=== PATIENT | female | born 1945 | race African-American/Black ===

== ENCOUNTER 2017-05-24 08:29 | Emergency (ER) | payer OTHER ==
[~2017-05-24] VITALS: Ht 152.4 cm; Wt 97.5 kg
[~2017-05-24 08:29] MED LIST: AMLO5TAB22 PO; ASPI81 PO; AZIT250T3 PO; FISH1000 PO; FURO1TAB93 PO; LEVO.125 PO; LOVA1TAB47 PO; POTA20IN2 PO; PRIN10TA PO; TOPR50TA PO; VITA500C PO
[2017-05-24 08:32] VITALS: BP 138/64; PULSE 71; RESP 16; TEMP 98.5; O2SAT 98
[2017-05-24] MEDS ORDERED: MEDR4PAK PO (08:53)
[2017-05-24] MEDS ORDERED: BENA25TA6 PO (08:53)
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
== END 2017-05-24 10:30 | disposition home or self-care (01) ==
LOC: NEPC 08:29
DX: R21 Rash and other nonspecific skin eruption (principal); I50.9 Heart failure, unspecified; I11.0 Hypertensive heart disease with heart failure; E11.9 Type 2 diabetes mellitus without complications; E78.00 Pure hypercholesterolemia, unspecified; Z95.810 Presence of automatic (implantable) cardiac defibrillator; Z79.82 Long term (current) use of aspirin
CPT/HCPCS: 99284

== ENCOUNTER 2017-06-05 12:35 | Emergency (ER) | payer OTHER, MEDICAID ==
[~2017-06-05] VITALS: Ht 154.9 cm; Wt 92.0 kg
[~2017-06-05 12:35] MED LIST changes: -AZIT250T3 PO; +BENA25TA6 PO; +MEDR4PAK PO
[2017-06-05 12:39] VITALS: BP 155/74; PULSE 74; RESP 16; TEMP 98.4; O2SAT 98
[2017-06-05] MEDS ORDERED: LEVO.125 PO (12:52)
[2017-06-05] MEDS ORDERED: FURO1TAB60 PO (12:52)
[2017-06-05] MEDS ORDERED: ASCO1CHW8 (12:52)
[2017-06-05] MEDS ORDERED: ASPI81CH CHEW (12:52)
[2017-06-05] MEDS ORDERED: AMLO5TAB2 PO (12:52)
[2017-06-05] MEDS ORDERED: LOVA20TA PO (12:54)
[2017-06-05] MEDS ORDERED: POTA-163 PO (12:54)
[2017-06-05] MEDS ORDERED: LISI-515 PO (12:54)
[2017-06-05] MEDS ORDERED: TOPR50TA PO (12:54)
[2017-06-05] MEDS ORDERED: FISH1000 (12:54)
[2017-06-05] MEDS ORDERED: TRIAM.1%T TOPICAL (13:10)
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
== END 2017-06-05 13:18 | disposition home or self-care (01) ==
LOC: NEPD 12:35
DX: L25.9 Unspecified contact dermatitis, unspecified cause (principal); R11.2 Nausea with vomiting, unspecified; R19.7 Diarrhea, unspecified; E78.00 Pure hypercholesterolemia, unspecified; I10 Essential (primary) hypertension; E11.9 Type 2 diabetes mellitus without complications; I50.9 Heart failure, unspecified; Z79.82 Long term (current) use of aspirin; Z79.899 Other long term (current) drug therapy
CPT/HCPCS: 99283

== ENCOUNTER 2017-08-12 18:48 | Emergency (ER) | payer OTHER, MEDICAID ==
[~2017-08-12 18:48] MED LIST changes: +AMLO5TAB2 PO; -AMLO5TAB22 PO; +ASCO1CHW8; -ASPI81 PO; +ASPI81CH CHEW; +FISH1000; -FISH1000 PO; +FURO1TAB60 PO; -FURO1TAB93 PO; +LISI-515 PO; -LOVA1TAB47 PO; +LOVA20TA PO; +POTA-163 PO; -POTA20IN2 PO; -PRIN10TA PO; +TRIAM.1%T TOPICAL; -VITA500C PO
[2017-08-12 18:51] VITALS: BP 174/84; PULSE 74; RESP 19; TEMP 98.9; O2SAT 100
[2017-08-12 21:58] VITALS: BP 139/65; PULSE 66; RESP 16; O2SAT 99
--- NOTE | 2017-08-12 22:13 | PD ---
HPI Chief Complaint: Fall Time Seen by Provider: 21:47 Travel History International Travel<30 days: No Contact w/Intl Traveler<30days: No Traveled to known affect area: No History of Present Illness HPI Patient is a 71 yo female with PMH of CHF, pacemaker, Defibrillator, HTN, Hyperlipidemia presenting to the ER for a swollen left knee. The patient states she was painting earlier in the day and she tripped on the rug. It caused her to hit her knee and has been swollen since. The patient denies syncope and states she did not presyncopal symptoms such as nausea, aura, dizziness or loss of vision/strength before falling. She does not state anything that makes the pain better or worse. She has not taken anything to help with the pain. She denies fever, chest pain, SOB, headache, visual changes, and any new focal/ neurological deficits. She has been able to walk on her knee. Social: Negative for alcohol and illicit drugs. Smoke many years ago and denies current tobacco use Surgical: Hysterectomy, appendectomy, splenectomy, right wrist, pacemaker, Defibrillator PMH: CHF, HTN, Hyperlipidemia PFSH Past Medical History Hx Anticoagulant Therapy: Yes (ASA) Arthritis: No Asthma: No Autoimmune Disease: No Blood Disorders: No Anxiety: No Depression: No Heart Rhythm Problems: Yes Cancer: No Cardiovascular Problems: Yes (PACEMAKER/DEFIB/HTN) High Cholesterol: Yes Chemotherapy: No Chest Pain: Yes Congestive Heart Failure: Yes COPD: No Cerebrovascular Accident: No Diabetes: Yes (DIET CONTROLLED) Patient Takes Glucophage: No Diminished Hearing: No Endocrine: No GERD: No Glaucoma: No Genitourinary: No Headaches: No Hepatitis: No Hiatal Hernia: No Hypertension: Yes Immune Disorder: No Kidney Stones: No Musculoskeletal: No Neurologic: No Psychiatric: No Reproductive: No Respiratory: No Migraines: No Myocardial Infarction: No Radiation Therapy: No Renal Failure: No Seizures: No Sickle Cell Disease: No Sleep Apnea: No Thyroid Disease: Yes Ulcer: No ?: Not Menopausal: Yes : 8 Para: 4 Miscarriage: 2 Past Surgical History Abdominal Surgery: Yes AICD: Yes Appendectomy: Yes Arteriovenous Shunt: No Body Medical Devices: PACER/ICD Cardiac Surgery: Yes (PACER/ICD 2nd Bradycardia ) Cholecystectomy: No Ear Surgery: No Endocrine Surgery: No Eye Surgery: No Genitourinary Surgery: No Gynecologic Surgery: Yes (hysterectomy 17 yrs ago) Hysterectomy: Yes Insulin Pump: No Joint Replacement: No Oral Surgery: No Pacemaker: Yes Thoracic Surgery: No Other Surgery: Yes (SPLEENECTOMY ) Social History Alcohol Use: No Tobacco Use: No Substance Use: No Allergies-Medications (Allergen,Severity, Reaction): Coded Allergies: codeine (Unverified Allergy, Severe, SYNCOPE, 08/12/17) levofloxacin (Unverified Allergy, Severe, ITCHING, 08/12/17) penicillin G (Unverified Allergy, Severe, Anaphylaxis, 08/12/17) Uncoded Allergies: HORSEFLIES (Allergy, Severe, 05/03/12) Reported Meds & Prescriptions Reported Meds & Active Scripts Active Triamcinolone Topical (Triamcinolone Acetonide) 0.1 % Oint 1 Applic TOPICAL BID Medrol Dosepak (Methylprednisolone) 4 Mg Dspk 4 Mg PO DIRECTED Per Pharmacist direction Benadryl Allergy (Diphenhydramine HCl) 25 Mg Tablet 25 Mg PO QID PRN Reported Potassium Chloride ER (Potassium Chloride) 20 Meq Tab 20 Meq PO BID Fish Oil ([place]-3 Fatty Acids) 1,000 Mg Cap Toprol XL (Metoprolol Succinate) 50 Mg Tab 50 Mg PO DAILY Lovastatin 20 Mg Tab 20 Mg PO DAILY Lisinopril 20 Mg Tab 20 Mg PO DAILY Synthroid (Levothyroxine Sodium) 125 Mcg Tab 125 Mcg PO DAILY Lasix (Furosemide) 40 Mg Tab 40 Mg PO BID Aspirin 81 Mg Chew 81 Mg CHEW DAILY C 500 (Ascorbic Acid) 500 Mg Chew Amlodipine (Amlodipine Besylate) 5 Mg Tab 5 Mg PO BID Review of Systems Except as stated in HPI: all other systems reviewed are Neg Physical Exam Narrative GENERAL: In no acute distress, pleasant and cooperative SKIN: Warm and dry. HEAD: Atraumatic. Normocephalic. EYES: Pupils equal and round. No scleral icterus. No injection or drainage. ENT: No nasal bleeding or discharge. Mucous membranes pink and moist. NECK: Trachea midline. No JVD. CARDIOVASCULAR: Regular rate and rhythm. RESPIRATORY: No accessory muscle use. Clear to auscultation. Breath sounds equal bilaterally. GASTROINTESTINAL: Abdomen soft, non-tender, nondistended. Hepatic and splenic margins not palpable. MUSCULOSKELETAL: Lower extremity edema, Mild effusion of the left knee and is limited from BMI. PT and DP pulses palpable bilaterally. Full nontender range of motion of all joints in bilateral lower extremities. 5 out of 5 strength. No tenderness at bilateral hips bilateral ankles. Minimal tenderness in the anterior portion of the left knee over the patella. She is able to extend the knee. No joint laxity. Compartments are soft. NEUROLOGICAL: Awake and alert. No obvious cranial nerve deficits. Motor grossly within normal limits. Five out of 5 muscle strength in the arms and legs. Normal speech. PSYCHIATRIC: Appropriate mood and affect; insight and judgment normal. Data Data Last Documented VS Vital Signs Date Time Temp Pulse Resp B/P (MAP) Pulse Ox O2 Delivery O2 Flow Rate FiO2 08/12/17 23:31 64 16 148/73 (98) 99 08/12/17 21:58 Room Air 08/12/17 18:51 98.9 Orders Orders Knee, Complete (4vws) (08/12/17 ) Alfredo Bandage (08/12/17 22:56) [facility] Medical Decision Making Medical Screen Exam Complete: Yes Emergency Medical Condition: Yes Differential Diagnosis Knee strain, knee sprain, knee fracture, knee effusion. Narrative Course Patient roomed in the emergency department after a mechanical fall at home. X- rays negative. Discussed symptomatic management and return to ED criteria. She was offered pain medicine emergency department to climb. Discussed need follow-up with a primary care physician. Diagnosis Primary Impression: Knee effusion, left Additional Impression: Knee contusion Qualified Codes: S80.02XA - Contusion of left knee, initial encounter Disposition: 01 DISCHARGE HOME Condition: Stable Puma Sutherland MD Aug 12, 2017 22:13
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
[2017-08-12 23:31] VITALS: BP 148/73
== END 2017-08-12 23:48 | disposition home or self-care (01) ==
LOC: NEPD 18:48
DX: S80.02XA Contusion of left knee, initial encounter (principal); I11.0 Hypertensive heart disease with heart failure; I50.9 Heart failure, unspecified; E78.5 Hyperlipidemia, unspecified; E78.00 Pure hypercholesterolemia, unspecified; W18.09XA Striking against other object with subsequent fall, initial encounter; Z79.82 Long term (current) use of aspirin; Z79.899 Other long term (current) drug therapy
CPT/HCPCS: 73564; 99283

== ENCOUNTER 2018-04-01 16:57 | Emergency (ER) | payer OTHER, MEDICAID ==
[~2018-04-01 16:57] MED LIST changes: +ASPI-516 CHEW; -ASPI81CH CHEW
[2018-04-01 17:12] VITALS: BP 157/69; PULSE 74; TEMP 98.7; O2SAT 98
[2018-04-01 17:31] VITALS: PULSE 66
[2018-04-01] MEDS ORDERED: KETOROLAC TROMETHAMINE 60 MG/2 ML (IM) VIAL IM ONE (18:00)
[2018-04-01] MEDS ORDERED: ACETAMINOPHEN/HYDROcodone 325 MG/5 MG TAB PO ONE (18:00)
[2018-04-01] MEDS ORDERED: IBUP-232 PO (18:11)
[2018-04-01] MEDS ORDERED: TRAM50TA PO (18:11)
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
[2018-04-01 18:48] VITALS: BP 154/70
== END 2018-04-01 18:52 | disposition home or self-care (01) ==
LOC: NEPD 16:57
DX: M54.16 Radiculopathy, lumbar region (principal); I50.9 Heart failure, unspecified; I11.0 Hypertensive heart disease with heart failure; Z88.5 Allergy status to narcotic agent; Z88.0 Allergy status to penicillin
CPT/HCPCS: 96372; 99283; J1885

== ENCOUNTER 2018-04-05 12:16 | Emergency (ER) | payer MEDICAID, OTHER ==
[~2018-04-05 12:16] MED LIST changes: +IBUP-232 PO; +TRAM50TA PO
[2018-04-05 12:31] VITALS: BP 164/74; PULSE 63; RESP 20; TEMP 98.5; O2SAT 98
[2018-04-05] MEDS ORDERED: MEDR4PAK PO (12:57)
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
[2018-04-05] MEDS ORDERED: traMADol HCL 50 MG TAB PO ONE (13:00)
[2018-04-05] MEDS ORDERED: KETOROLAC TROMETHAMINE 60 MG/2 ML (IM) VIAL IM ONE (13:00)
[2018-04-05] MEDS ORDERED: DEXAMETHASONE SOD PHOS 4 MG/ML VIAL IM ONE (13:00)
== END 2018-04-05 13:47 | disposition home or self-care (01) ==
LOC: NEPK 12:16
DX: M54.31 Sciatica, right side (principal); E07.9 Disorder of thyroid, unspecified; E78.00 Pure hypercholesterolemia, unspecified; I11.0 Hypertensive heart disease with heart failure; I50.9 Heart failure, unspecified
CPT/HCPCS: 96372; 99283; J1100; J1885